=== PATIENT | female | born 1995 | race Caucasian/White ===

== ENCOUNTER 2016-08-03 02:18 | Observation (INO) | payer MEDICAID ==
[2016-08-03] MEDS ORDERED: ONDANSETRON 4 MG/2 ML VIAL ONE ×2 (02:34→05:45)
[2016-08-03] MEDS ORDERED: NS 2,000 ML IV ONE (02:37)
[2016-08-03] MEDS ORDERED: ONDANSETRON 4 MG/2 ML VIAL IVP ONE ×2 (02:37→05:51)
--- NOTE | 2016-08-03 02:37 | EDPHY ---
H & P Stated Complaint: nvd x 2 hr HPI/ROS: HPI CHIEF COMPLAINT: Nausea, vomiting, diarrhea, abdominal pain HISTORY OF PRESENT ILLNESS: This patient very pleasant 21-year-old female denies any significant medical history and no surgical history, presents emergency room at 2:40 a.m. in the morning with chief complaint of nausea, vomiting, diarrhea and abdominal pain. Patient states that she had "yellow belly" for dinner she had chicken around 7:00 p.m. tonight she felt fine around midnight she felt as if her abdomen was bloated however did not have any nausea vomiting diarrhea or pain in her abdomen. She woke up suddenly around 1:00 a.m. with nausea vomited multiple times nonbilious nonbloody also had multiple episodes of nonbloody diarrhea and then worsening abdominal pain she describes the pain as a crampy pain in her lower abdomen periumbilical. She tells me she vomited multiple x5 , multiple episodes of watery diarrhea 5. Her nausea continues so she decided to come to the emergency room. Past Medical History: No significant medical history Past Surgical History: No significant surgical history Social History: Denies use of drugs alcohol however does endorse tobacco Family History: noncontributory ROS REVIEW OF SYSTEMS: A comprehensive 10 point review of systems is otherwise negative aside from elements mentioned in the history of present illness. Exam Constitutional appears well, triage nursing summary reviewed, vital signs reviewed, awake/alert. Eyes normal conjunctivae and sclera, EOMI, PERRLA. HENT normal inspection, atraumatic, moist mucus membranes, no epistaxis, neck supple/ no meningismus, no raccoon eyes. Respiratory clear to auscultation bilaterally, normal breath sounds, no respiratory distress, no wheezing. Cardiovascular rate normal, regular rhythm, no murmur, no edema, distal pulses normal. Gastrointestinal soft, mild tenderness in periumbilical region , no rebound, no guarding, normal bowel sounds, no distension, no pulsatile mass. Genitourinary no CVA tenderness. Musculoskeletal no midline vertebral tenderness, full range of motion, no calf swelling, no tenderness of extremities, no meningismus, good pulses, neurovascularly intact. Skin pink, warm, & dry, no rash, skin atraumatic. Neurologic awake, alert and oriented x 3, AAOx3, moves all 4 extremities equally, motor intact, sensory intact, CN II-XII intact, normal cerebellar, normal vision, normal speech. Psychiatric normal mood/affect. Heme/Lymph/Immune no lymphadenopathy. Differential diagnosis includes but is not limited to and in no particular order : Bowel obstruction, appendicitis, gallbladder disease, diverticulitis, colitis , enteritis, perforated viscus, gastritis, GERD, esophagitis, urinary tract infection, pyelonephritis, kidney stones Medical Decision Making: Patient had an IV established obtain blood work patient had a CT scan of her abdomen pelvis due to abdominal pain nausea vomiting. Will re-evaluate after IV fluids nausea medicine pain medicine. Re-evaluation: CT scan of the abdomen pelvis with IV contrast. The results of the study are shows enteritis lot of small bowel intestines fluid filled. The study was read by Dr. Hyatt I viewed the images myself on the PACS system. It is noted that we are unable to visualize the appendix. 0556: re-evaluation at this time: still complaining of abdominal pain now it is most focally on the right side right upper quadrant she still is having nausea vomiting after multiple rounds of IV fluids and nausea medicine and pain medicine. I will proceed with a ultrasound of her gallbladder to rule out acute gallbladder disease. Most likely patient will need admission for observation for nausea vomiting ongoing abdominal pain. Ultrasound of the abdomen right upper quadrant . The results of the study are negative for acute intra-abdominal pathology specifically normal ultrasound of the gallbladder I discussed the results of this study with the radiologist Dr. Hyatt 0645: Re-examination at this time this patient still has abdominal tenderness on exam specifically right lower quadrant. She did have continuous vomiting here in the emergency room I did give her IV Phenergan she is resting comfortably now. She did have an ultrasound of her abdomen gallbladder after her CT scan is reassuring. We did not visualize her appendix. 0646: is noted this patient has leukocytosis and ongoing abdominal pain with nausea vomiting I will admitted to the hospitalist service for observation with abdominal exams IV fluids nausea and pain control. 0646: I will consult General surgery for evaluation of her abdominal pain and persistent nausea vomiting. 0651: Patient continues to vomit. I have ordered her 2.5 mg IV Haldol and another L of fluid. 0707: I did speak with Dr. Lee Who will have Dr. Roger consult on the patient. At this time I did re-evaluate this patient she is not vomiting she did received IV Haldol and 4th L of fluid. I did review her CT scan again it does appear to be enteritis. 0710: I did update this patient and family member at bedside they understand to be admitted for observation and control of her n/v. Source: Patient - Personal History LMP (Females 10-55): 15-21 Days Ago Current Tetanus/Diphtheria Vaccine: Yes Current Tetanus Diphtheria and Acellular Pertussis (TDAP): Yes - Medical/Surgical History Hx Asthma: No Hx Chronic Respiratory Disease: No Hx Diabetes: No Hx Cardiac Disease: No Hx Renal Disease: No Hx Cirrhosis: No Hx Alcoholism: No Hx HIV/AIDS: No Hx Splenectomy or Spleen Trauma: No - Social History Smoking Status: Current every day smoker Constitutional: Initial Vital Signs Temperature (C) 36.5 C 08/03/16 02:21 Heart Rate 95 08/03/16 02:21 Respiratory Rate 17 08/03/16 02:21 Blood Pressure 128/88 H 08/03/16 02:21 O2 Sat (%) 95 08/03/16 02:21 O2 Delivery Mode Room Air Allergies/Adverse Reactions: No Known Allergies Allergy (Unverified 08/03/16 02:21) Home Medications: Medication Instructions Recorded NK [No Known Home Meds] 08/03/16 Medical Decision Making - Data Points Laboratory Results: Laboratory Results 08/03/16 02:35 08/03/16 02:35 Microbiology Results: MICROBIOLOGY 08/03/16 04:36 Urine,Clean Catch Urine Culture - Preliminary [place] Types Medications Given: Discontinued Medications Acetaminophen (Tylenol) 650 mg PO Q4HRS PRN PRN Reason: Pain, Mild/Fever, Can Take PO Stop: 01/30/17 09:25 Last Admin: 08/03/16 20:28 Dose: 650 mg Haloperidol Lactate (Haldol Injection) 2.5 mg IVP EDNOW ONE Stop: 08/03/16 06:51 Last Admin: 08/03/16 06:55 Dose: 2.5 mg Hydromorphone HCl (Dilaudid) 0.5 mg IVP EDNOW ONE Stop: 08/03/16 02:42 Last Admin: 08/03/16 02:45 Dose: 0.5 mg Sodium Chloride (Ns) 2,000 mls @ 0 mls/hr IV ONCE ONE PRN Reason: Wide Open Stop: 08/03/16 02:38 Last Admin: 08/03/16 02:46 Dose: 2,000 mls Sodium Chloride (Ns) 1,000 mls @ 0 mls/hr IV ONCE ONE PRN Reason: Wide Open Stop: 08/03/16 04:36 Last Admin: 08/03/16 04:40 Dose: 1,000 mls Sodium Chloride (Ns) 1,000 mls @ 0 mls/hr IV ONCE ONE PRN Reason: Wide Open Stop: 08/03/16 06:52 Last Admin: 08/03/16 06:55 Dose: 1,000 mls Sodium Chloride (Ns) 1,000 mls @ 125 mls/hr IV CONT CHILO Stop: 01/30/17 09:29 Last Admin: 08/04/16 02:38 Dose: 1,000 mls Ondansetron HCl (Zofran) 4 mg IVP EDNOW ONE Stop: 08/03/16 02:38 Last Admin: 08/03/16 02:47 Dose: 4 mg Ondansetron HCl (Zofran) 4 mg IVP EDNOW ONE Stop: 08/03/16 05:52 Last Admin: 08/03/16 06:14 Dose: 4 mg Promethazine HCl (Phenergan Injection) 25 mg IVP EDNOW ONE Stop: 08/03/16 06:00 Last Admin: 08/03/16 06:14 Dose: 25 mg Departure - Departure Disposition: [facility] Inpatient Acute Clinical Impression: Abdominal pain Qualifiers: Abdominal location: right lower quadrant Qualifier Code: (R10.31) Right lower quadrant pain Nausea and vomiting Qualifiers: Vomiting type: unspecified Vomiting Intractability: intractable Qualifier Code : (R11.2) Nausea with vomiting, unspecified Condition: Good
[2016-08-03] MEDS ORDERED: HYDROmorphONE/DILAUDID 1 MG/ML SYR IVP ONE (02:41)
[2016-08-03 02:43] LABS: % IMMATURE GRANULYOCYTES 0.5 % (0.0-1.1); ABSOLUTE IMMATURE GRANULOCYTES 0.07 10^3/uL (0.00-0.10); ADD DIFF? NO; ADD MORPH? NO; ADD SCAN? NO; ATYPICAL LYMPHOCYTE FLAG 0 (0-99); FRAGMENT RBC FLAG 0 (0-99); HEMATOCRIT 43.4 % (38.0-47.0); HEMOGLOBIN 15.4 g/dL (12.6-16.3); LEFT SHIFT FLG 0 (0-99); LIPEMIA HEMOLYSIS FLAG 90 (0-99); MEAN CELL HEMOGLOBIN 31.3 pg (27.9-34.1); MEAN CELL HEMOGLOBIN CONCENTR. 35.5 g/dL (32.4-36.7); MEAN CELL VOLUME 88.2 fL (81.5-99.8); MEAN PLATELET VOLUME 9.7 fL (8.7-11.7); PLATELET CLUMPS FLAG 10 (0-99); PLATELET COUNT 227 10^3/uL (150-400); RED BLOOD CELL COUNT 4.92 10^6/uL (4.18-5.33); RED CELL DISTRIBUTION WIDTH 11.7 % (11.5-15.2)
[2016-08-03 02:54] LABS: ALANINE AMINOTRANSFERASE 33 IU/L (9-52); ALBUMIN 4.1 g/dL (3.5-5.0); ALKALINE PHOSPHATASE 54 IU/L (38-126); ANION GAP 12 mEq/L (8-16); ASPARTATE AMINOTRANSFERASE 19 IU/L (14-46); BILIRUBIN,TOTAL 0.7 mg/dL (0.1-1.4); BILIRUBIN-CONJUGATED 0.2 mg/dL (0.0-0.5); BILIRUBIN-UNCONJUGATED 0.5 mg/dL (0.0-1.1); CALCIUM 8.8 mg/dL (8.5-10.4); CARBON DIOXIDE 21 mEq/l (22-31); CHLORIDE 107 mEq/L (97-110); CREATININE 0.8 mg/dL (0.6-1.0); GLOMERULAR FILTRATION RATE > 60; GLUCOSE 106 mg/dL (70-100); POTASSIUM 3.8 mEq/L (3.5-5.2); SODIUM 140 mEq/L (134-144)
[2016-08-03] MEDS ORDERED: IOPAMIDOL (ISOVUE-300) 50 ML VIAL IV ONE (03:04)
[2016-08-03 04:28] LABS: COLOR YELLOW; LEUKOCYTE ESTERASE,URINE 2+ (NEGATIVE); NITRITE,URINE NEGATIVE (NEGATIVE)
[2016-08-03 04:35] LABS: BACTERIA TRACE /hpf (NONE SEEN)
[2016-08-03] MEDS ORDERED: NS 1,000 ML IV ONE ×2 (04:35→06:51)
[2016-08-03] MEDS ORDERED: PROMETHAZINE HCL 25 MG/ML VIAL IVP ONE (05:59)
[2016-08-03] MEDS ORDERED: HALOPERIDOL LACT 5 MG/ML INJ IVP ONE (06:50)
[2016-08-03] MEDS ORDERED: HALOPERIDOL LACT 5 MG/ML INJ ONE (06:50)
--- NOTE | 2016-08-03 09:02 | US ---
Limited Abdominal Ultrasound History: Right upper quadrant pain. Technique: Longitudinal and transverse images of the right upper quadrant were obtained. Findings: The gallbladder is well visualized and there is no cholelithiasis. The right upper quadrant Gavin sign is negative. The common duct is of normal caliber and there is no intrahepatic ductal di latation. The inferior vena cava and portal venous structures appear normal. The liver, pancreas an d right kidney are normal. The aorta tapers normally. Impression: Negative right upper quadrant ultrasound. The study was performed as an emergency on-call case and discussed by telephone with Dr. Rashad ball at 0 640 hours. The final interpretation is concordant with the original communication.
[2016-08-03] MEDS ORDERED: ONDANSETRON DISINTEGRATING 4 MG TAB PO PRN (09:26)
[2016-08-03] MEDS ORDERED: ONDANSETRON 4 MG/2 ML VIAL IVP PRN (09:26)
[2016-08-03] MEDS ORDERED: ACETAMINOPHEN 325 MG TAB PO PRN (09:26)
[2016-08-03] MEDS: NS 1,000 ML IV SCH ×2 (10:28→18:19)
--- NOTE | 2016-08-03 10:57 | CT ---
CT Abdomen and Pelvis With Contrast History: Right-sided pain, possible appendicitis. Technique: A helical CT volumetric data set is acquired through the abdomen and pelvis after bolus a dministration of 85 mL of Isovue-370. Axial images are obtained at 5 mm thickness with reformations p erformed at 1.50 mm intervals. Sagittal and coronal reformations are performed and the examination is reviewed on the workstation at multiple window/level settings. Dose reduction techniques were utiliz ed. Comparison to targeted right lower quadrant ultrasound. Findings: Abdomen: Lung bases are clear. Liver and spleen look normal as do the pancreas, kidneys and retroper itoneum. There is no evidence for bowel obstruction. Pelvis: An abnormal appendix is not visualized. There is no free air or free fluid. Fluid-filled mil dly dilated small bowel loops are seen in the right lower quadrant which may reflect enteritis. Degenerative changes are seen in the lower lumbar spine with disk space loss at L5-S. Impression: 1. An abnormal appendix is not visualized with no secondary findings to support a clinical diagnosis of acute appendicitis. 2. Query enteritis. 3. See above report for additional findings. The study was performed as an emergency on-call case and discussed by telephone with Dr. Kang sahni at 0406 hours. The final interpretation is concordant with the original communication.
--- NOTE | 2016-08-03 15:42 | GHP ---
[f rep st] HISTORY AND PHYSICAL DATE OF ADMISSION: 08/03/2016 CHIEF COMPLAINT: Nausea and vomiting with abdominal pain. HISTORY OF PRESENT ILLNESS: The patient is a 21-year-old female who denies any past medical history. She states that she ate dinner last evening and felt normal; however, her tells me that she complained of a headache all day. She states that she awoke approximately around 1 o'clock in the morning with severe abdominal pain and vomiting. After several bouts of vomiting she presented to the emergency room where her nausea and vomiting continued. She states that she has had 1 bout of diarrhea since this episode initiated. She denies any bloody diarrhea. She denies any worsening abdominal pain. The patient denies any fevers; however, she does complain of chills. She denies any chest pain, shortness of breath or dyspnea. She denies any current headache. PAST MEDICAL HISTORY: None, per the patient. PAST SURGICAL HISTORY: None, per the patient. REVIEW OF SYSTEMS: Comprehensive 10-point review of systems negative other than noted in the HPI. SOCIAL HISTORY: The patient denies any recreational drugs or alcohol. She does smoke tobacco. FAMILY HISTORY: Per the patient, is noncontributory. PHYSICAL EXAM: GENERAL: The patient is alert in mild distress, having dry heaving. VITAL SIGNS: Afebrile at 37.4, pulse is 73, respiratory rate 16, blood pressure is 127/52. She is saturating 94% on room air. HEENT: Normocephalic, atraumatic. Mucous membranes are moist. Pupils equal, round, reactive to light. RESPIRATORY: Lungs are clear to auscultation bilaterally. No rhonchi or wheezes appreciated. GASTROINTESTINAL/ABDOMEN: Bowel sounds are positive. Soft. Nontender to palpation. The patient is obese. BACK: No CVA tenderness. MUSCULOSKELETAL: Full range of motion. No tenderness in extremities. SKIN: Without rashes or lesions. [place], warm and dry. NEUROLOGIC : The patient is focally intact. LABORATORY DATA: White count of 15 with a glucose of 106. Abnormal urinalysis. RADIOLOGICAL STUDIES: 1. CT scan of the abdomen: Possible enteritis. 2. Abdominal ultrasound: Negative for abnormalities. ALLERGIES: None. HOME MEDICATIONS: None. ASSESSMENT AND PLAN: The patient is a 21-year-old female who developed an acute onset of nausea and vomiting with diarrhea. The differential for this is broad but is likely secondary viral gastroenteritis. Due to her acute leukocytosis she will be monitored in the hospital to rule out appendicitis. The patient will be continued on supportive management including antiemetics, as well as IV fluid and hydration. Her abdominal exam is benign with a soft abdomen and no guarding or rigidity noted. We will continue to monitor the patient in the hospital overnight. She will be admitted to observation status. I anticipate the patient will be discharged on 08/04/2016. Further action will be taken as needed during the patient's hospitalization. /[id number]/MODL MTDD
[2016-08-04] MEDS: NS 1,000 ML IV SCH (02:38)
[2016-08-04 03:47] VITALS: RESP 16
[2016-08-04 05:32] LABS: % IMMATURE GRANULYOCYTES 0.4 % (0.0-1.1); ABSOLUTE IMMATURE GRANULOCYTES 0.02 10^3/uL (0.00-0.10); ADD DIFF? NO; ADD MORPH? NO; ADD SCAN? NO; ATYPICAL LYMPHOCYTE FLAG 0 (0-99); FRAGMENT RBC FLAG 0 (0-99); HEMATOCRIT 38.1 % (38.0-47.0); HEMOGLOBIN 13.2 g/dL (12.6-16.3); LEFT SHIFT FLG 0 (0-99); LIPEMIA HEMOLYSIS FLAG 90 (0-99); MEAN CELL HEMOGLOBIN 31.1 pg (27.9-34.1); MEAN CELL HEMOGLOBIN CONCENTR. 34.6 g/dL (32.4-36.7); MEAN CELL VOLUME 89.9 fL (81.5-99.8); MEAN PLATELET VOLUME 9.9 fL (8.7-11.7); PLATELET CLUMPS FLAG 0 (0-99); PLATELET COUNT 175 10^3/uL (150-400); RED BLOOD CELL COUNT 4.24 10^6/uL (4.18-5.33); RED CELL DISTRIBUTION WIDTH 11.9 % (11.5-15.2)
[2016-08-04 05:47] LABS: ANION GAP 8 mEq/L (8-16); CALCIUM 7.9 mg/dL (8.5-10.4); CARBON DIOXIDE 23 mEq/l (22-31); CHLORIDE 109 mEq/L (97-110); CREATININE 0.7 mg/dL (0.6-1.0); GLOMERULAR FILTRATION RATE > 60; GLUCOSE 86 mg/dL (70-100); MAGNESIUM 1.8 mg/dL (1.6-2.3); POTASSIUM 3.6 mEq/L (3.5-5.2); SODIUM 140 mEq/L (134-144)
[2016-08-04 08:17] VITALS: BP 128/62; PULSE 75; TEMP 98.7; O2SAT 97
--- NOTE | 2016-08-04 11:25 | GDS ---
[f rep st] DISCHARGE SUMMARY DISCHARGE DIAGNOSES: Acute gastroenteritis, likely viral. HISTORY: For details please see the history and physical dictated by Ashwini Patterson NP. In brief, th e patient is a 21-year-old female with no significant past medical history who presented to the Emerg ency Department after waking during the night with abdominal pain, nausea, and vomiting. In the ER, she received a CT and ultrasound of her abdomen. Her white blood cell count was mildly elevated at 1 5,000. There was no evidence of appendicitis, but she was admitted to the hospital for further manag ement, IV hydration, and serial exams. HOSPITAL COURSE: Patient admitted to Medical-Surgical Unit. She was hydrated with IV fluids. Her s ymptoms had completely resolved the following morning. Her white blood cell count has normalized. S he has no significant right lower quadrant tenderness and remains afebrile. DISPOSITION: She is discharged home in stable condition. DISCHARGE MEDICATIONS: None. FOLLOWUP: She will follow up with her primary care physician as needed. /[id number]/MODL
== END 2016-08-04 12:04 | disposition home or self-care (01) ==
LOC: INTOOBSV 06:45 → F3E 08:56
PROVIDERS: ADMIT Internal Medicine; ATTEND Internal Medicine
DX: A08.39 Other viral enteritis (principal); Z72.0 Tobacco use
CPT/HCPCS: 74177; 76705; 96361; 96374; 96375; 96376; 99285; G0378; J1170; J2405; J2550; Q9967

== ENCOUNTER 2018-02-06 00:11 | Emergency (ER) | payer MEDICAID ==
[2018-02-06] MEDS ORDERED: NS 1,000 ML IV ONE (00:42)
--- NOTE | 2018-02-06 00:42 | EDPHY ---
H & P Stated Complaint: dizzy, lightheaded starting 3pm, menstral cycle is very heavy Time Seen by Provider: 02/06/18 00:42 HPI/ROS: HPI CHIEF COMPLAINT: Lightheadedness, heavy menstrual period HISTORY OF PRESENT ILLNESS: Patient 22-year-old female, presents emergency room feeling lightheaded. She reports to me that she is currently on day 2 of her menstrual cycle and has been having a heavy cycle she states globally she feels lightheaded. She denies any dizziness, denies chest pain or shortness of breath, denies room spinning sensation. Denies being . Denies fever. Main complaint lightheadedness. She states this started around 3 o'clock today. Past Medical History: Denies significant medical history Past Surgical History: Denies significant surgical history Social History: Smokes tobacco. Denies drugs alcohol. Family History: Noncontributory. ROS REVIEW OF SYSTEMS: A comprehensive 10 point review of systems is otherwise negative aside from elements mentioned in the history of present illness. Exam Constitutional appears well nontoxic no acute distress, triage nursing summary reviewed, vital signs reviewed, awake/alert. Eyes normal conjunctivae and sclera, EOMI, PERRLA. HENT normal inspection, atraumatic, moist mucus membranes, no epistaxis, neck supple/ no meningismus, no raccoon eyes. Respiratory clear to auscultation bilaterally, normal breath sounds, no respiratory distress, no wheezing. Cardiovascular rate normal, regular rhythm, no murmur, no edema, distal pulses normal. Gastrointestinal soft, non-tender, no rebound, no guarding, normal bowel sounds, no distension, no pulsatile mass. Genitourinary no CVA tenderness. Musculoskeletal no midline vertebral tenderness, full range of motion, no calf swelling, no tenderness of extremities, no meningismus, good pulses, neurovascularly intact. Skin pink, warm, & dry, no rash, skin atraumatic. Neurologic awake, alert and oriented x 3, AAOx3, moves all 4 extremities equally, motor intact, sensory intact, CN II-XII intact, normal cerebellar, normal vision, normal speech. Psychiatric normal mood/affect. Heme/Lymph/Immune no lymphadenopathy. Differential Diagnosis: Includes but is not limited to in a particular order electrolyte disturbance, dehydration, orthostatic hypertension, cardiac arrhythmia, anemia, , ectopic Medical Decision Making: Plan for this patient IV establishment blood draw, check basic blood work electrolytes, check H&H, gentle IV fluids, EKG, troponin , D-dimer. Re-evaluate. Re-evaluation: EKG interpretation by me on record in [employer] system. Impression time of EKG 005 this is sinus rhythm rate of 58, no signs of cardiac arrhythmia and no signs of acute ischemia. Unremarkable EKG. 0236: Patient's blood work unremarkable. D-dimer negative troponin negative EKG nonischemic. Urinalysis dirty catch with blood on her period. No evidence of acute infection she denies any urinary tract type infection symptoms. She did ambulate well here without any difficulty. Steady gait. Denies feeling dizzy or lightheaded, denies chest pain or shortness of breath. Feels better after IV fluids. Source: Patient - Personal History LMP (Females 10-55): Now Current Tetanus/Diphtheria Vaccine: Unsure - Medical/Surgical History Hx Asthma: No Hx Chronic Respiratory Disease: No Hx Diabetes: No Hx Cardiac Disease: No Hx Renal Disease: No Hx Cirrhosis: No Hx Alcoholism: No Hx HIV/AIDS: No Hx Splenectomy or Spleen Trauma: No Other PMH: Pneumonia, MRSA 2012 - Social History Smoking Status: Current every day smoker Constitutional: Initial Vital Signs Temperature (C) 36.7 C 02/06/18 00:13 Heart Rate 67 02/06/18 00:13 Respiratory Rate 18 02/06/18 00:13 Blood Pressure 131/83 H 02/06/18 00:13 O2 Sat (%) 97 02/06/18 00:13 O2 Delivery Mode Room Air Allergies/Adverse Reactions: No Known Allergies Allergy (Unverified 02/06/18 00:13) Home Medications: Medication Instructions Recorded NK [No Known Home Meds] 08/03/16 Medical Decision Making - Data Points Laboratory Results: Laboratory Results 02/06/18 00:57 02/06/18 00:57 02/06/18 02/06/18 02/06/18 01:45 00:58 00:57 WBC RBC Hgb Hct MCV MCH MCHC RDW Plt Count MPV Neut % (Auto) Lymph % (Auto) [place] % (Auto) Eos % (Auto) Baso % (Auto) Nucleat RBC Rel Count Absolute Neuts (auto) Absolute Lymphs (auto) Absolute Monos (auto) Absolute Eos (auto) Absolute Basos (auto) Absolute Nucleated RBC Immature Gran % Immature Gran # D-Dimer < 0.27 ug/mLFEU ug/mLFEU (0.00-0.50) Sodium Potassium Chloride Carbon Dioxide Anion Gap BUN Creatinine Estimated GFR Glucose Calcium Magnesium Total Bilirubin Conjugated Bilirubin Unconjugated Bilirubin AST ALT Alkaline Phosphatase POC Troponin I 0.00 ng/mL ng/mL (0.00-0.08) Total Protein Albumin Beta HCG, Qual Urine Color YELLOW Urine Appearance HAZY Urine pH 5.0 (5.0-7.5) Ur Specific [place] 1.023 (1.002-1.030) Urine Protein 1+ H (NEGATIVE) Urine Ketones NEGATIVE (NEGATIVE) Urine Blood 3+ H (NEGATIVE) Urine Nitrate NEGATIVE (NEGATIVE) Urine Bilirubin NEGATIVE (NEGATIVE) Urine Urobilinogen NEGATIVE EU EU (0.2-1.0) Ur Leukocyte Esterase 1+ H (NEGATIVE) Urine RBC 50-182 /hpf H /hpf (0-3) Urine WBC 10-15 /hpf H /hpf (0-3) Ur Epithelial Cells 1+ /lpf /lpf (NONE-1+) Urine Bacteria TRACE /hpf H /hpf (NONE SEEN) Urine Mucus TRACE /lpf /lpf (NONE-1+) Urine Glucose NEGATIVE (NEGATIVE) 02/06/18 02/06/18 02/06/18 00:57 00:57 00:57 WBC 8.35 10^3/uL 10^3/uL (3.80-9.50) RBC 4.39 10^6/uL 10^6/uL (4.18-5.33) Hgb 14.0 g/dL g/dL (12.6-16.3) Hct 39.3 % % (38.0-47.0) MCV 89.5 fL fL (81.5-99.8) MCH 31.9 pg pg (27.9-34.1) MCHC 35.6 g/dL g/dL (32.4-36.7) RDW 11.8 % % (11.5-15.2) Plt Count 239 10^3/uL 10^3/uL (150-400) MPV 10.0 fL fL (8.7-11.7) Neut % (Auto) 49.9 % % (39.3-74.2) Lymph % (Auto) 39.9 % % (15.0-45.0) [place] % (Auto) 7.7 % % (4.5-13.0) Eos % (Auto) 1.8 % % (0.6-7.6) Baso % (Auto) 0.5 % % (0.3-1.7) Nucleat RBC Rel Count 0.0 % % (0.0-0.2) Absolute Neuts (auto) 4.17 10^3/uL 10^3/uL (1.70-6.50) Absolute Lymphs (auto) 3.33 10^3/uL H 10^3/uL (1.00-3.00) Absolute Monos (auto) 0.64 10^3/uL 10^3/uL (0.30-0.80) Absolute Eos (auto) 0.15 10^3/uL 10^3/uL (0.03-0.40) Absolute Basos (auto) 0.04 10^3/uL 10^3/uL (0.02-0.10) Absolute Nucleated RBC 0.00 10^3/uL 10^3/uL (0-0.01) Immature Gran % 0.2 % % (0.0-1.1) Immature Gran # 0.02 10^3/uL 10^3/uL (0.00-0.10) D-Dimer Sodium 140 mEq/L mEq/L (135-145) Potassium 3.6 mEq/L mEq/L (3.3-5.0) Chloride 109 mEq/L mEq/L (97-110) Carbon Dioxide 24 mEq/l mEq/l (22-31) Anion Gap 7 mEq/L L mEq/L (8-16) BUN 16 mg/dL mg/dL (7-23) Creatinine 0.9 mg/dL mg/dL (0.6-1.0) Estimated GFR > 60 Glucose 90 mg/dL mg/dL (70-100) Calcium 9.5 mg/dL mg/dL (8.5-10.4) Magnesium 2.0 mg/dL mg/dL (1.6-2.3) Total Bilirubin 0.4 mg/dL mg/dL (0.1-1.4) Conjugated Bilirubin 0.3 mg/dL mg/dL (0.0-0.5) Unconjugated Bilirubin 0.1 mg/dL mg/dL (0.0-1.1) AST 17 IU/L IU/L (14-46) ALT 20 IU/L IU/L (9-52) Alkaline Phosphatase 51 IU/L IU/L (38-126) POC Troponin I Total Protein 6.7 g/dL g/dL (6.3-8.2) Albumin 4.0 g/dL g/dL (3.5-5.0) Beta HCG, Qual NEGATIVE Urine Color Urine Appearance Urine pH Ur Specific [place] Urine Protein Urine Ketones Urine Blood Urine Nitrate Urine Bilirubin Urine Urobilinogen Ur Leukocyte Esterase Urine RBC Urine WBC Ur Epithelial Cells Urine Bacteria Urine Mucus Urine Glucose Medications Given: Discontinued Medications Sodium Chloride (Ns) 1,000 mls @ 0 mls/hr IV EDNOW ONE; Wide Open PRN Reason: Protocol Stop: 02/06/18 00:43 Last Admin: 02/06/18 01:00 Dose: 1,000 mls Point of Care Test Results: Chemistry 02/06/18 00:58 POC Troponin I 0.00 ng/mL ng/mL (0.00-0.08) Departure - Departure Disposition: Home, Routine, Self-Care Clinical Impression: Lightheaded Condition: Good Instructions: Near Syncope (ED), Lightheadedness (ED) Additional Instructions: 1. Drink lots of fluids stay well-hydrated 2. Return to the emergency room if there is worsening symptoms questions or concerns. Referrals: NONE *PRIMARY CARE P,. [Primary Care Provider] - As per Instructions [facility],. [Clinic] - As per Instructions
--- NOTE | 2018-02-06 00:52 | CPEKG ---
Heart Rate: 58 RR Interval: 1034 P-R Interval: 160 QRSD Interval: 98 QT Interval: 404 QTC Interval: 397 P [place]: 58 QRS [place]: 75 T Wave [place]: 50 EKG Severity - NORMAL ECG - EKG Impression: SINUS RHYTHM Electronically Signed By: Kang Avilez 06-Feb-2018 07:19:42
[2018-02-06 01:07] LABS: PLATELET COUNT 239 10^3/uL (150-400)
[2018-02-06 03:41] VITALS: BP 128/78
== END 2018-02-06 03:41 | disposition home or self-care (01) ==
DX: R42 Dizziness and giddiness (principal); E86.9 Volume depletion, unspecified; F17.200 Nicotine dependence, unspecified, uncomplicated
CPT/HCPCS: 84484-PO